=== PATIENT | male | born 1985 | race Caucasian/White ===

== ENCOUNTER 2022-07-30 19:47 | Emergency (ER) | payer SELFPAY ==
[2022-07-30] MEDS ORDERED: Tetracaine HCl/PF 0.5% 4 ML Bottle ONE (19:56)
[2022-07-30] MEDS ORDERED: Bacitracin/Polymyxin B Ophth Oint 3.5 GM Tube ONE (21:12)
[2022-07-31] MEDS ORDERED: Bacitracin/Polymyxin B Ophth Oint 3.5 GM Tube EYELF SCH (09:00)
== END 2022-07-30 21:28 | disposition home or self-care (01) ==
LOC: DL.ED 19:47
DX: S00.252A Superficial foreign body of left eyelid and periocular area, initial encounter (principal); Z77.22 Contact with and (suspected) exposure to environmental tobacco smoke (acute) (chronic); Z88.6 Allergy status to analgesic agent
CPT/HCPCS: 99283; A9270